=== PATIENT | female | born 1985 | race African-American/Black ===

== ENCOUNTER 2019-11-12 01:56 | Emergency (ER) | payer MEDICAID ==
[~2019-11-12] VITALS: Ht 172.7 cm; Wt 82.0 kg
[2019-11-12] MEDS ORDERED: HYDROCODONE/ACETAMINOPHEN 5/325MG TABLET PO STA (02:49)
[2019-11-12] MEDS ORDERED: BACITRACIN ZINC OINT UDPKT TOP NR (03:30)
[2019-11-12 07:26] VITALS: BP 112/78
== END 2019-11-12 07:28 | disposition home or self-care (01) ==
LOC: ER 01:56
DX: S00.83XA Contusion of other part of head, initial encounter (principal); Y07.03 Male partner, perpetrator of maltreatment and neglect; S13.8XXA Sprain of joints and ligaments of other parts of neck, initial encounter; T14.8XXA Other injury of unspecified body region, initial encounter; Y04.2XXA Assault by strike against or bumped into by another person, initial encounter; Y93.89 Activity, other specified; Y92.89 Other specified places as the place of occurrence of the external cause
CPT/HCPCS: 71045; 99285

== ENCOUNTER 2019-11-12 11:19 | Emergency (ER) | payer MEDICAID ==
[~2019-11-12] VITALS: Ht 167.6 cm; Wt 95.0 kg
[2019-11-12 11:29] VITALS: BP 121/74
[2019-11-12] MEDS ORDERED: HYDROCODONE/ACETAMINOPHEN 5/325MG TABLET PO ONE (11:45)
== END 2019-11-12 13:19 | disposition home or self-care (01) ==
LOC: ER 11:19
DX: S50.11XA Contusion of right forearm, initial encounter (principal); S09.90XA Unspecified injury of head, initial encounter; E11.9 Type 2 diabetes mellitus without complications; Y04.0XXA Assault by unarmed brawl or fight, initial encounter; Y93.89 Activity, other specified; Y92.89 Other specified places as the place of occurrence of the external cause; Y99.8 Other external cause status
CPT/HCPCS: 73090; 81025; 99284

== ENCOUNTER 2019-11-14 14:26 | Emergency (ER) | payer MEDICAID ==
[~2019-11-14] VITALS: Ht 167.6 cm; Wt 95.0 kg
[2019-11-14 15:02] LABS: CLARITY URINE CLEAR (CLEAR); COLOR URINE DARK YELLOW (YELLOW); KETONES URINE TRACE (NEGATIVE); LEUKOCYTE ESTERASE URINE 2+ (NEGATIVE); NITRITE URINE NEGATIVE (NEGATIVE); OCCULT BLOOD URINE 1+ (NEGATIVE); PROTEIN URINE TRACE (NEGATIVE); SPECIFIC GRAVITY URINE 1.032 (1.005-1.030)
[2019-11-14 17:04] VITALS: BP 102/59
== END 2019-11-14 17:06 | disposition home or self-care (01) ==
LOC: ER 14:26
DX: A59.01 Trichomonal vulvovaginitis (principal); E11.9 Type 2 diabetes mellitus without complications
CPT/HCPCS: 81003; 81025; 87077; 87186; 87210; 99283

== ENCOUNTER 2020-01-30 20:42 | Emergency (ER) | payer MEDICAID ==
[~2020-01-30] VITALS: Ht 167.6 cm; Wt 98.0 kg
[2020-01-30] MEDS ORDERED: IBUPROFEN 600MG TABLET PO STA (22:16)
[2020-01-30] MEDS ORDERED: AZITHROMYCIN 500 MG TABLET PO ONE (22:30)
[2020-01-30] MEDS ORDERED: CEFTRIAXONE SODIUM 250 MG/VIAL IM ONE (22:30)
[2020-01-30 22:38] VITALS: BP 116/70
[2020-01-30 23:05] LABS: CLARITY URINE CLEAR (CLEAR); COLOR URINE YELLOW (YELLOW); KETONES URINE TRACE (NEGATIVE); LEUKOCYTE ESTERASE URINE TRACE (NEGATIVE); NITRITE URINE NEGATIVE (NEGATIVE); OCCULT BLOOD URINE NEGATIVE (NEGATIVE); PROTEIN URINE NEGATIVE (NEGATIVE); SPECIFIC GRAVITY URINE 1.028 (1.005-1.030)
[2020-01-30 23:30] LABS: *BARBITURATES SCREEN URINE NEGATIVE (NEGATIVE); *BENZODIAZEPINES SCREEN URINE NEGATIVE (NEGATIVE)
[2020-01-30 23:31] LABS: *COCAINE SCREEN URINE NEGATIVE (NEGATIVE); CANNABINOID URINE SCREEN NEGATIVE (NEGATIVE); METHADONE URINE SCREEN NEGATIVE (NEGATIVE); OPIATES URINE SCREEN NEGATIVE (NEGATIVE); PHENCYCLIDINE URINE SCREEN NEGATIVE (NEGATIVE)
[2020-01-30 23:32] LABS: *AMPHETAMINES SCREEN URINE PRESUMTIVE POSITIVE (NEGATIVE)
[2020-01-31 00:25] LABS: BASOPHILS % 0.4 % (0.0-2.0); EOSINOPHILS % 1.6 % (0.0-5.0); HEMATOCRIT. 37.8 % (36.0-48.0); HEMOGLOBIN. 12.3 g/dL (12.0-16.0); MEAN CORPUSCULAR HEMOGLOBIN 28.3 pg (28.0-32.0); MEAN CORPUSCULAR VOLUME 86.8 fL (81.0-99.0); MEAN PLATELET VOLUME 8.3 fl (7.4-10.4); MONOCYTES % 6.2 % (2.0-8.0); NEUTROPHILS % 57.8 % (40.0-76.0); PLATELET 239 x1000/uL (130-400); RED BLOOD CELL COUNT 4.35 mill/uL (4.2-5.4); RED CELL DISTRIBUTION WIDTH 16.7 % (11.6-14.6)
[2020-01-31 00:27] LABS: CHLORIDE 105 mEq/L (98-107)
== END 2020-01-31 00:58 | disposition home or self-care (01) ==
LOC: ER 21:05
DX: N76.0 Acute vaginitis (principal); E11.9 Type 2 diabetes mellitus without complications
CPT/HCPCS: 36415; 80053; 80305; 81003; 81025; 83690; 85025; 96372; 99283; J0696

== ENCOUNTER 2021-09-17 04:35 | Emergency (ER) | payer OTHER ==
[~2021-09-17] VITALS: Ht 167.6 cm; Wt 96.0 kg
[~2021-09-17 04:35] MED LIST: CETI10CA2 MT; POLY10DR3 LEFTEYE
[2021-09-17 04:41] VITALS: BP 116/70
[2021-09-17] MEDS ORDERED: ONDANSETRON HCL 4MG/2ML INJ IV STA (05:13)
[2021-09-17] MEDS ORDERED: KETOROLAC 30MG/ML VIAL IV STA (05:13)
[2021-09-17 06:16] LABS: BASOPHILS % 1.1 % (0.0-2.0); EOSINOPHILS % 3.3 % (0.0-5.0); HEMATOCRIT. 37.4 % (36.0-48.0); HEMOGLOBIN. 12.3 g/dL (12.0-16.0); LYMPHOCYTES % 28.7 % (20.0-50.0); MEAN CORPUSCULAR HEMOGLOBIN 27.1 pg (28.0-32.0); MEAN CORPUSCULAR VOLUME 82.4 fL (81.0-99.0); MEAN PLATELET VOLUME 7.8 fl (7.4-10.4); MONOCYTES % 8.4 % (2.0-8.0); NEUTROPHILS % 58.5 % (40.0-76.0); PLATELET 228 x1000/uL (130-400); RED BLOOD CELL COUNT 4.54 mill/uL (4.2-5.4); RED CELL DISTRIBUTION WIDTH 16.3 % (11.6-14.6)
[2021-09-17 06:25] LABS: CHLORIDE 106 mEq/L (98-107)
[2021-09-17 06:37] LABS: HCG SCREEN NEGATIVE
[2021-09-17 10:51] LABS: CLARITY URINE CLOUDY (CLEAR); COLOR URINE YELLOW (YELLOW); KETONES URINE NEGATIVE (NEGATIVE); LEUKOCYTE ESTERASE URINE 3+ (NEGATIVE); NITRITE URINE POSITIVE (NEGATIVE); OCCULT BLOOD URINE 3+ (NEGATIVE); PH URINE 6.5 (4.5-8.0); PROTEIN URINE 2+ (NEGATIVE); SPECIFIC GRAVITY URINE 1.022 (1.005-1.030); UROBILINOGEN URINE 0.2 E.U./dL (0.2-1.0)
[2021-09-17] MEDS ORDERED: IBUPROFEN 400MG TABLET PO ONE (11:00)
[2021-09-17] MEDS ORDERED: IBUP-2028 PO (11:04)
[2021-09-17] MEDS ORDERED: NITR100C PO (11:04)
== END 2021-09-17 12:11 | disposition home or self-care (01) ==
LOC: ER 04:35
DX: N39.0 Urinary tract infection, site not specified (principal); E11.9 Type 2 diabetes mellitus without complications; Z98.890 Other specified postprocedural states
CPT/HCPCS: 36415; 76830; 76856; 80053; 81003; 83690; 84703; 85025; 87077; 87086; 87186; 93005; 99285; Z7610

== ENCOUNTER 2022-05-22 03:48 | Emergency (ER) | payer OTHER ==
[~2022-05-22] VITALS: Ht 172.7 cm; Wt 109.8 kg
[~2022-05-22 03:48] MED LIST changes: +IBUP-2028 PO; +NITR100C PO
[2022-05-22 03:51] VITALS: BP 123/86
[2022-05-22 04:26] LABS: CLARITY URINE CLEAR (CLEAR); COLOR URINE YELLOW (YELLOW); KETONES URINE NEGATIVE (NEGATIVE); LEUKOCYTE ESTERASE URINE NEGATIVE (NEGATIVE); NITRITE URINE NEGATIVE (NEGATIVE); OCCULT BLOOD URINE NEGATIVE (NEGATIVE); PH URINE 6.5 (4.5-8.0); PROTEIN URINE NEGATIVE (NEGATIVE); SPECIFIC GRAVITY URINE 1.019 (1.005-1.030); UROBILINOGEN URINE 0.2 E.U./dL (0.2-1.0)
[2022-05-22] MEDS ORDERED: PREDNISONE 20MG TABLET PO ONE (05:00)
[2022-05-22] MEDS ORDERED: ACETAMINOPHEN 500MG TABLET PO ONE (05:00)
[2022-05-22] MEDS ORDERED: ALBUTEROL (0.083%) 2.5MG/3ML NEB HHN ONE (05:00)
[2022-05-22] MEDS ORDERED: P50 MT (06:07)
[2022-05-22] MEDS ORDERED: ALBU18HF2 IH (06:07)
[2022-05-22] MEDS ORDERED: ACET-2708 MT (06:08)
[2022-05-22 07:57] LABS: BASOPHILS % 0.4 % (0.0-2.0); EOSINOPHILS % 3.9 % (0.0-5.0); HEMATOCRIT. 38.6 % (36.0-48.0); HEMOGLOBIN. 12.6 g/dL (12.0-16.0); LYMPHOCYTES % 22.6 % (20.0-50.0); MEAN CORPUSCULAR HEMOGLOBIN 26.9 pg (28.0-32.0); MEAN CORPUSCULAR VOLUME 82.3 fL (81.0-99.0); MONOCYTES % 2.3 % (2.0-8.0); NEUTROPHILS % 70.8 % (40.0-76.0); PLATELET 277 x1000/uL (130-400); RED BLOOD CELL COUNT 4.68 mill/uL (4.2-5.4)
[2022-05-22 08:00] LABS: CHLORIDE 99 mEq/L (98-107)
== END 2022-05-22 09:41 | disposition home or self-care (01) ==
LOC: ER 03:48
DX: R06.02 Shortness of breath (principal); R05.9 Cough, unspecified; R06.2 Wheezing; R10.31 Right lower quadrant pain
CPT/HCPCS: 36415; 71045; 74176; 76830; 76856; 80053; 81003; 81025; 85025; 94640; 99285; J7512; Z7610

== ENCOUNTER 2022-10-01 16:22 | Emergency (ER) | payer MEDICAID, OTHER ==
[~2022-10-01] VITALS: Ht 167.6 cm; Wt 107.0 kg
[~2022-10-01 16:22] MED LIST changes: +ACET-2708 MT; +ALBU18HF2 IH; +P50 MT
[2022-10-01 16:23] VITALS: BP 139/86
[2022-10-01] MEDS ORDERED: LIDOCAINE 5% PATCH TOP SCH (17:15)
[2022-10-01] MEDS ORDERED: HYDROCODONE/ACETAMINOPHEN 5/325MG TABLET PO ONE (17:15)
[2022-10-01] MEDS ORDERED: BACL20TA MT (18:32)
[2022-10-01] MEDS ORDERED: LIDO700A15 TP (18:32)
[2022-10-01] MEDS ORDERED: NAPR-1074 MT (18:32)
[2022-10-01] MEDS ORDERED: ACET-2708 MT (18:32)
== END 2022-10-01 18:58 | disposition home or self-care (01) ==
LOC: ER 16:22
DX: M54.59 Other low back pain (principal); R07.89 Other chest pain; V49.49XA Driver injured in collision with other motor vehicles in traffic accident, initial encounter; E11.9 Type 2 diabetes mellitus without complications; Y93.89 Activity, other specified; Y92.488 Other paved roadways as the place of occurrence of the external cause
CPT/HCPCS: 71045; 81025; 93005; 99283

== ENCOUNTER 2023-03-17 23:10 | Emergency (ER) | payer OTHER ==
[~2023-03-17] VITALS: Ht 167.6 cm; Wt 107.0 kg
[~2023-03-17 23:10] MED LIST changes: +BACL20TA MT; +LIDO700A15 TP; +NAPR-1074 MT; +POLY10DR17 LEFTEYE; -POLY10DR3 LEFTEYE
[2023-03-18 00:17] VITALS: TEMP 98.6; O2SAT 99
[2023-03-18] MEDS ORDERED: CEPH500T MT ×2 (02:50)
[2023-03-18] MEDS ORDERED: AMOX1TAB16 MT (02:51)
[2023-03-18 03:33] VITALS: BP 130/74; PULSE 68; RESP 16
== END 2023-03-18 03:35 | disposition home or self-care (01) ==
LOC: ER 23:10
DX: L73.1 Pseudofolliculitis barbae (principal); E11.9 Type 2 diabetes mellitus without complications; Z79.899 Other long term (current) drug therapy
CPT/HCPCS: 99283

== ENCOUNTER 2023-06-17 01:57 | Emergency (ER) | payer OTHER ==
[~2023-06-17] VITALS: Ht 167.6 cm; Wt 100.4 kg
[~2023-06-17 01:57] MED LIST changes: +AMOX1TAB16 MT
[2023-06-17 02:30] VITALS: BP 112/54; O2SAT 98
[2023-06-17 03:53] VITALS: PULSE 88; RESP 19; TEMP 98.3
== END 2023-06-17 03:55 | disposition home or self-care (01) ==
LOC: ER 01:57
DX: N93.9 Abnormal uterine and vaginal bleeding, unspecified (principal); Z00.00 Encounter for general adult medical examination without abnormal findings
CPT/HCPCS: 81025; 99284